=== PATIENT | male | born 1960 | race African-American/Black ===

== ENCOUNTER 2018-02-12 20:38 | Emergency (ER) | payer MEDICAID ==
[~2018-02-12] VITALS: Ht 172.7 cm; Wt 96.0 kg
[~2018-02-12 20:38] MED LIST: ASPI-1159 PO; ATOR40TA70 PO; CLOP75TA33 PO; DABI150C PO; FURO40TA5 PO; LISI40TA4 PO
[2018-02-12 21:00] VITALS: BP 183/101
== END 2018-02-12 22:30 | disposition left against medical advice (07) ==
LOC: ER 21:38
DX: H61.21 Impacted cerumen, right ear (principal); Z53.21 Procedure and treatment not carried out due to patient leaving prior to being seen by health care provider

== ENCOUNTER 2018-06-30 06:41 | Emergency (ER) | payer MEDICAID ==
[~2018-06-30] VITALS: Ht 172.7 cm; Wt 93.0 kg
[2018-06-30 12:15] VITALS: BP 112/91
[2018-06-30] MEDS ORDERED: IBUPROFEN 600MG TABLET PO ONE (12:15)
== END 2018-06-30 14:08 | disposition home or self-care (01) ==
LOC: ER 06:41
DX: S39.012A Strain of muscle, fascia and tendon of lower back, initial encounter (principal); V49.9XXA Car occupant (driver) (passenger) injured in unspecified traffic accident, initial encounter; Y93.9 Activity, unspecified; Y92.410 Unspecified street and highway as the place of occurrence of the external cause; I10 Essential (primary) hypertension; I25.2 Old myocardial infarction; F17.200 Nicotine dependence, unspecified, uncomplicated; Z79.82 Long term (current) use of aspirin; Z95.810 Presence of automatic (implantable) cardiac defibrillator
CPT/HCPCS: 71046; 99284; Z7610

== ENCOUNTER 2021-05-08 03:37 | Emergency (ER) | payer MEDICAID, OTHER ==
[~2021-05-08] VITALS: Ht 172.7 cm; Wt 95.0 kg
[~2021-05-08 03:37] MED LIST changes: -ASPI-1159 PO; +ASPI-1497 PO; +LISI40TA13 PO; -LISI40TA4 PO
[2021-05-08 04:34] LABS: BASOPHILS % 0.8 % (0.0-2.0); EOSINOPHILS % 1.2 % (0.0-5.0); LYMPHOCYTES % 19.4 % (20.0-50.0); MEAN CORPUSCULAR HEMOGLOBIN 31.9 pg (28.0-32.0); MEAN CORPUSCULAR VOLUME 93.4 fL (80.0-94.0); MEAN PLATELET VOLUME 9.3 fl (7.4-10.4); MONOCYTES % 8.5 % (2.0-8.0); NEUTROPHILS % 70.1 % (40.0-76.0); PLATELET 174 x1000/uL (130-400); RED BLOOD CELL COUNT 4.38 mill/uL (4.7-6.1); RED CELL DISTRIBUTION WIDTH 15.9 % (11.6-14.6)
[2021-05-08 04:52] LABS: CHLORIDE 109 mEq/L (98-107)
[2021-05-08 05:00] VITALS: BP 149/92
== END 2021-05-08 05:15 | disposition home or self-care (01) ==
LOC: ER 03:37
DX: T82.191A Other mechanical complication of cardiac pulse generator (battery), initial encounter (principal); R00.1 Bradycardia, unspecified; I11.9 Hypertensive heart disease without heart failure; F12.10 Cannabis abuse, uncomplicated; Z79.82 Long term (current) use of aspirin; Y83.8 Other surgical procedures as the cause of abnormal reaction of the patient, or of later complication, without mention of misadventure at the time of the procedure; Y92.018 Other place in single-family (private) house as the place of occurrence of the external cause
CPT/HCPCS: 36415; 71045; 80053; 83880; 84484; 85025; 93005; 99285

== ENCOUNTER 2024-10-16 04:08 | Inpatient (IN) | payer OTHER ==
[~2024-10-16] VITALS: Ht 172.7 cm; Wt 86.4 kg
[~2024-10-16 04:08] MED LIST changes: +APIX5TAB PO; -ATOR40TA70 PO; -CLOP75TA33 PO; +COR12 PO; -DABI150C PO; +FAMO-135 MT; -FURO40TA5 PO; +FURO80TA87 MT; +LIP40 PO; -LISI40TA13 PO; +LOSA25TA26 PO
[2024-10-16 04:57] LABS: BASOPHILS % 0.9 % (0.0-2.0); HEMATOCRIT. 41.6 % (42.0-52.0); HEMOGLOBIN. 13.7 g/dL (14.0-18.0); LYMPHOCYTES % 14.4 % (20.0-50.0); MEAN CORPUSCULAR HEMOGLOBIN 30.8 pg (28.0-32.0); MEAN CORPUSCULAR HGB CONC 32.9 g/dL (31.0-37.0); MEAN CORPUSCULAR VOLUME 93.6 fL (80.0-94.0); MONOCYTES % 9.8 % (2.0-8.0); NEUTROPHILS % 73.9 % (40.0-76.0); RED BLOOD CELL COUNT 4.45 mill/uL (4.7-6.1); RED CELL DISTRIBUTION WIDTH 17.8 % (11.6-14.6)
[2024-10-16 05:05] LABS: CHLORIDE 108 mEq/L (98-107); POTASSIUM 3.4 mEq/L (3.5-5.1); SODIUM 142 mEq/L (136-145)
[2024-10-16 05:06] LABS: CARBON DIOXIDE 24 mEq/L (21-32)
[2024-10-16 05:07] LABS: CALCIUM 9.4 mg/dL (8.7-10.4)
[2024-10-16] MEDS: ALBUTEROL (0.083%) 2.5MG/3ML NEB HHN STA (05:07)
[2024-10-16 05:08] VITALS: PULSE 114; RESP 22; O2SAT 98
[2024-10-16] MEDS: IPRATROPIUM BROMIDE (0.02%) 0.5MG/2.5ML NEB HHN STA (05:08)
[2024-10-16 05:11] LABS: GLUCOSE 114 mg/dL (70-105); UREA NITROGEN BLOOD 47 mg/dL (9-23)
[2024-10-16 05:19] LABS: DIFFERENTIAL COMMENT 1
[2024-10-16] MEDS: METHYLPREDNISOLONE SOD SUCC 125MG/2ML (ACT-O-VIAL) IV STA (05:33)
[2024-10-16] MEDS: DILTIAZEM HCL 5MG/ML 5ML VIAL IV ONE (05:34)
[2024-10-16 05:43] LABS: MEAN PLATELET VOLUME 9.4 fl (7.4-10.4); PLATELET 185 x1000/uL (130-400)
[2024-10-16 05:49] LABS: CREATININE 2.5 mg/dL (0.6-1.3)
[2024-10-16 06:13] LABS: TROPONIN I HIGH SENSITIVITY 180 ng/L (3.0-53)
[2024-10-16] MEDS ORDERED: MAGNESIUM/ALUMINUM HYDROXIDE/SIMETHICONE 30ML UDC PO PRN (06:15)
[2024-10-16] MEDS ORDERED: CLONIDINE 0.1MG TABLET PO PRN (06:15)
[2024-10-16] MEDS ORDERED: ACETAMINOPHEN 325MG TABLET PO PRN ×2 (06:15)
[2024-10-16] MEDS ORDERED: HYDROCODONE/ACETAMINOPHEN 5/325MG TABLET PO PRN (06:15)
[2024-10-16] MEDS ORDERED: DOCUSATE SODIUM 100MG CAPSULE PO PRN (06:15)
[2024-10-16] MEDS ORDERED: ONDANSETRON HCL 4MG/2ML INJ IV PRN (06:15)
[2024-10-16] MEDS ORDERED: GUAIFENESIN 200MG/10ML SUGAR FREE UDC PO PRN (06:15)
[2024-10-16] MEDS ORDERED: POTASSIUM CHLORIDE 20 MEQ in DEXT 5% WATER 90 ML IV ONE (06:15)
[2024-10-16] MEDS: KCL 20MEQ/100ML PREMIX 100 ML IV ONE (08:05)
[2024-10-16] MEDS: FUROSEMIDE 40MG/4ML VIAL IV SCH (08:05)
[2024-10-16 08:30] LABS: TROPONIN I HIGH SENSITIVITY 146 ng/L (3.0-53)
[2024-10-16] MEDS: EMPAGLIFLOZIN 10MG TABLET PO SCH (09:00)
[2024-10-16] MEDS: FAMOTIDINE 20MG TABLET PO SCH (10:18)
[2024-10-16] MEDS: CARVEDILOL 12.5MG TABLET PO SCH (10:18)
[2024-10-16] MEDS: SPIRONOLACTONE 12.5MG TABLET PO SCH (10:19)
[2024-10-16] MEDS: LOSARTAN 25 MG TABLET PO SCH (10:19)
[2024-10-16] MEDS: ASPIRIN 81MG EC TABLET PO SCH (10:19)
[2024-10-16] MEDS: APIXABAN 5 MG TABLET PO SCH (10:19)
[2024-10-16] MEDS: ATORVASTATIN CALCIUM 40MG TABLET PO SCH (10:19)
[2024-10-16 11:48] VITALS: BP 147/87; PULSE 88; RESP 20; TEMP 36.696
[2024-10-16 12:00] VITALS: BP 139/114; PULSE 103; RESP 20; TEMP 36.22512; O2SAT 97
[2024-10-16 16:00] VITALS: BP_SYST 136; BP_SYST 139; BP_DIAS 85; PULSE 69; RESP 18; RESP 20; TEMP 35.78064; TEMP 36.72516; O2SAT 97; O2SAT 98
[2024-10-16 20:00] VITALS: BP 147/112; PULSE 58; RESP 19; TEMP 36.22512; O2SAT 97
[2024-10-16] MEDS: IPRATROPIUM/ALBUTEROL 0.5-3(2.5)MG/3ML NEB HHN PRN (21:02)
[2024-10-16 21:04] VITALS: PULSE 94; RESP 20; O2SAT 98
[2024-10-17] VITALS (10 sets, daily range): BP systolic 112–148; BP diastolic 80–106; PULSE 63–110; RESP 19–20; TEMP 36.114–36.55848; O2SAT 97–99
[2024-10-17 00:37] LABS: TROPONIN I HIGH SENSITIVITY 87 ng/L (3.0-53)
[2024-10-17 08:18] LABS: POTASSIUM 3.6 mEq/L (3.5-5.1)
[2024-10-17 08:19] LABS: CALCIUM 9.8 mg/dL (8.7-10.4)
[2024-10-17 08:21] LABS: BASOPHILS % 0.2 % (0.0-2.0); DIFFERENTIAL COMMENT 0; EOSINOPHILS % 0.1 % (0.0-5.0); HEMATOCRIT. 38.9 % (42.0-52.0); HEMOGLOBIN. 12.9 g/dL (14.0-18.0); LYMPHOCYTES % 8.1 % (20.0-50.0); MEAN CORPUSCULAR HEMOGLOBIN 30.7 pg (28.0-32.0); MEAN CORPUSCULAR HGB CONC 33.2 g/dL (31.0-37.0); MEAN CORPUSCULAR VOLUME 92.5 fL (80.0-94.0); MEAN PLATELET VOLUME 8.7 fl (7.4-10.4); MONOCYTES % 10.3 % (2.0-8.0); NEUTROPHILS % 81.3 % (40.0-76.0); PLATELET 169 x1000/uL (130-400); RED BLOOD CELL COUNT 4.21 mill/uL (4.7-6.1); RED CELL DISTRIBUTION WIDTH 17.7 % (11.6-14.6); WHITE BLOOD COUNT 9.9 x1000/uL (4.5-11.0)
[2024-10-17 08:24] LABS: CREATININE 2.2 mg/dL (0.6-1.3)
[2024-10-17] MEDS ORDERED: APIX2.5T MT (15:58)
[2024-10-17] MEDS ORDERED: AMI2 PO (16:14)
[2024-10-17 19:58] LABS: GLUCOSE URINE 1+ (NEGATIVE); KETONES URINE NEGATIVE (NEGATIVE)
[2024-10-17 20:07] LABS: *AMPHETAMINES SCREEN URINE NEGATIVE (NEGATIVE); *BARBITURATES SCREEN URINE NEGATIVE (NEGATIVE); *BENZODIAZEPINES SCREEN URINE NEGATIVE (NEGATIVE); *COCAINE SCREEN URINE PRESUMPTIVE POSITIVE (NEGATIVE); CANNABINOID URINE SCREEN PRESUMPTIVE POSITIVE (NEGATIVE); ECSTASY MDMA SCREEN URINE NEGATIVE (NEGATIVE); METHADONE URINE SCREEN NEGATIVE (NEGATIVE); OPIATES URINE SCREEN NEGATIVE (NEGATIVE); PHENCYCLIDINE URINE SCREEN NEGATIVE (NEGATIVE)
[2024-10-17 21:23] LABS: CLARITY URINE CLEAR (CLEAR); COLOR URINE YELLOW (YELLOW); SPECIFIC GRAVITY URINE 1.007 (1.005-1.030)
[2024-10-17 21:24] LABS: LEUKOCYTE ESTERASE URINE NEGATIVE (NEGATIVE); NITRITE URINE NEGATIVE (NEGATIVE); OCCULT BLOOD URINE NEGATIVE (NEGATIVE); PROTEIN URINE NEGATIVE (NEGATIVE)
[2024-10-17 21:30] LABS: RBC URINE 0-2 /hpf (0-2); WBC URINE 0-2 /hpf (0-2)
[2024-10-17 21:31] LABS: BACTERIA URINE TRACE; SQUAMOUS EPITHELIAL CELL URINE NONE SEEN /lpf (RARE/1+)
[2024-10-18] VITALS (7 sets, daily range): BP systolic 103–131; BP diastolic 81–99; PULSE 50–112; RESP 18–21; TEMP 36.16956–36.55848; O2SAT 93–100
[2024-10-18 07:31] LABS: CHLORIDE 104 mEq/L (98-107); POTASSIUM 3.3 mEq/L (3.5-5.1); SODIUM 141 mEq/L (136-145)
[2024-10-18 07:32] LABS: CALCIUM 9.5 mg/dL (8.7-10.4); CARBON DIOXIDE 23 mEq/L (21-32)
[2024-10-18 07:37] LABS: CREATININE 1.9 mg/dL (0.6-1.3); GLUCOSE 105 mg/dL (70-105); UREA NITROGEN BLOOD 40 mg/dL (9-23)
[2024-10-18 07:39] LABS: PHOSPHORUS 3.9 mg/dL (2.5-4.9)
[2024-10-18 08:05] LABS: TROPONIN I HIGH SENSITIVITY 115 ng/L (3.0-53)
[2024-10-18] MEDS: POTASSIUM CHLORIDE 20MEQ TABLET SR PO NR (11:50)
[2024-10-18] MEDS: MAGNESIUM GLUCONATE 500MG TABLET PO SCH (11:50)
[2024-10-19] VITALS: BP 118/93; PULSE 102; RESP 18; TEMP 36.22512; O2SAT 100
[2024-10-19 02:46] VITALS: PULSE 84; RESP 16; O2SAT 98
[2024-10-19 04:00] VITALS: BP 129/76; PULSE 93; RESP 18; TEMP 36.114; O2SAT 100
[2024-10-19 07:31] LABS: HEMATOCRIT 42.5 % (42.0-52.0); HEMOGLOBIN 13.4 g/dL (14.0-18.0); MEAN CORPUSCULAR HEMOGLOBIN 29.7 pg (28.0-32.0); MEAN CORPUSCULAR HGB CONC 31.5 g/dL (31.0-37.0); MEAN CORPUSCULAR VOLUME 94.2 fL (80.0-94.0); PLATELET 201 x1000/uL (130-400); RED BLOOD CELL COUNT 4.51 mill/uL (4.7-6.1); RED CELL DISTRIBUTION WIDTH 17.7 % (11.6-14.6); WHITE BLOOD COUNT 8.1 x1000/uL (4.5-11.0)
[2024-10-19 07:44] LABS: CARBON DIOXIDE 22 mEq/L (21-32); CHLORIDE 105 mEq/L (98-107); POTASSIUM 3.9 mEq/L (3.5-5.1); SODIUM 139 mEq/L (136-145)
[2024-10-19 07:45] LABS: CALCIUM 9.6 mg/dL (8.7-10.4)
[2024-10-19 07:48] LABS: CREATININE 1.9 mg/dL (0.6-1.3)
[2024-10-19 07:50] LABS: GLUCOSE 89 mg/dL (70-105); UREA NITROGEN BLOOD 39 mg/dL (9-23)
[2024-10-19 07:52] LABS: PHOSPHORUS 4.5 mg/dL (2.5-4.9)
[2024-10-19 08:00] VITALS: BP 106/77; PULSE 66; RESP 18; TEMP 36.61404; O2SAT 98
[2024-10-19] MEDS: EMPAGLIFLOZIN 10MG TABLET PO SCH (11:04)
[2024-10-19 12:00] VITALS: BP 117/69; PULSE 102; RESP 18; TEMP 36.72516; O2SAT 95
[2024-10-19 12:37] VITALS: BP 117/69; PULSE 102; TEMP 98.1; O2SAT 95
== END 2024-10-19 12:55 | disposition home or self-care (01) | DRG 194 ==
LOC: ER 04:15 → 7EST 05:03 → ER 08:07
PROVIDERS: ADMIT Internal Medicine; ATTEND Internal Medicine
DX: I13.0 Hypertensive heart and chronic kidney disease with heart failure and stage 1 through stage 4 chronic kidney disease, or unspecified chronic kidney disease (principal); J96.01 Acute respiratory failure with hypoxia; I21.A1 Myocardial infarction type 2; I50.23 Acute on chronic systolic (congestive) heart failure; N17.9 Acute kidney failure, unspecified; I42.9 Cardiomyopathy, unspecified; Z20.822 Contact with and (suspected) exposure to COVID-19; E87.6 Hypokalemia; F12.10 Cannabis abuse, uncomplicated; F14.10 Cocaine abuse, uncomplicated; I48.91 Unspecified atrial fibrillation; I49.3 Ventricular premature depolarization; N18.32 Chronic kidney disease, stage 3b; I47.20 Ventricular tachycardia, unspecified; Z79.82 Long term (current) use of aspirin; Z79.899 Other long term (current) drug therapy; Z82.3 Family history of stroke; I25.2 Old myocardial infarction; Z95.810 Presence of automatic (implantable) cardiac defibrillator; Z79.01 Long term (current) use of anticoagulants; Z82.49 Family history of ischemic heart disease and other diseases of the circulatory system; Z87.891 Personal history of nicotine dependence; E83.42 Hypomagnesemia
CPT/HCPCS: 36415; 71045; 80048; 80305; 81003; 83605; 83735; 83880; 84100; 84484; 85025; 85027; 87426; 87804; 93005; 94640; 97166; 97530; 97535; 99291; J1940; J2919; J3480; J3490